=== PATIENT | male | born 1950 | race Caucasian/White ===

== ENCOUNTER 2020-10-28 12:26 | Emergency (ER) | payer BC, MEDICARE ==
[~2020-10-28] VITALS: Ht 188 cm; Wt 80.7 kg
[~2020-10-28 12:26] MED LIST: BAYER BACK & B1 EACH PO; HYDROCODON-ACE1 EA10 PO; LOVASTATIN20 MG PO; METFORMIN HCL500 MG PO; NAPROXEN500 MG PO; SERTRALINE HCL100 MG PO
[2020-10-28] MEDS ORDERED: ONDANSETRON ODT8 MG PO (16:01)
[2020-10-28] MEDS ORDERED: HYDROCODON-ACE1 EA11 PO (16:01)
== END 2020-10-28 17:40 | disposition home or self-care (01) ==
LOC: ED 12:26
DX: N20.1 Calculus of ureter (principal); E78.5 Hyperlipidemia, unspecified; F17.200 Nicotine dependence, unspecified, uncomplicated; Z79.899 Other long term (current) drug therapy; Z79.84 Long term (current) use of oral hypoglycemic drugs; R73.03 Prediabetes
CPT/HCPCS: 51798; 74177; 80053; 81001; 83690; 85025; 99284-25; A9270; J1885; J2405; J7030; Q9967

== ENCOUNTER 2021-10-13 05:54 | Day surgery (SDC) | payer MEDICARE, BC ==
[~2021-10-13] VITALS: Ht 188 cm; Wt 87.7 kg
[~2021-10-13 05:54] MED LIST changes: +HYDROCODON-ACE1 EA11 PO; +ONDANSETRON ODT8 MG PO
--- NOTE | 2021-10-13 06:38 | NUR ---
BLOOD GLUCOSE 111.
--- NOTE | 2021-10-13 08:59 | NUR ---
10/13/21 0859 Sheets,Roseanna 0849 PT ARRIVED TO PACU ON 6L VIA MASK, RESP EVEN AND UNLABORED. PT ASLEEP AND NONAROUSABLE TO TACTILE STIMULI. VSS. 0857 PT WAKES TO TACTILE STIMULI AND IS REORIENTED TO PACU AND EASILY FALLS BACK TO SLEEP. O2 REMOVED.
--- NOTE | 2021-10-13 13:54 | OR ---
[facility] [address] [place], [place] [address] Signed DATE OF OPERATION: 10/13/2021 SURGEON: David Stone MD PREOPERATIVE DIAGNOSIS: History of polyps. POSTOPERATIVE DIAGNOSES: 1. Polyps x2, right colon and sigmoid (small). 2. Extensive diverticulosis. PROCEDURES: Total colonoscopy to cecum with cold morcellation polypectomy x2, prolonged, complicated, difficult (greater than 1 hour). ANESTHESIA: Intravenous sedation propofol infusion, Quoc Hoff CRNA. INDICATIONS: A 71-year-old white man is a patient of Rima Cobb, has undergone colonoscopy in the past with findings of tubular adenoma and hyperplastic polyp. His last colonoscopy was in 2015. He is symptom free currently. He has no family history of colon cancer that he knows of. He is admitted to undergo colonoscopy. He understands the risks of bleeding, infection, and perforation. FINDINGS: The prep had no solid stool, but a fair amount of turbid thickened stool like fluid, which required a fair amount of irrigation, but excellent visualization was ultimately accomplished. Additionally, the colon was extensively redundant. Complete colonoscopy was undertaken of the cecum without question, however. He had extensive diverticulosis extending from the sigmoid and even scattered more proximally all the way up to the right colon. There were two small polyps, one in the right colon, the other at sigmoid, both excised with cold morcellation technique. There was no sign of worrisome type finding otherwise. DESCRIPTION OF PROCEDURE: The patient was brought to the endoscopy suite and placed in lateral decubitus position given intravenous sedation with propofol infusional technique. Digital rectal examination showed decreased sphincter tone. An Olympus video colonoscope was passed into the rectum and manipulated through the colon. The sigmoid was rather redundant and Electronically Signed By: DAVID STONE MD 10/13/21 1354 PATIENT NAME: AIDEE WILSON OPERATIVE REPORT DATE OF : 46 REPORT #: [id number] PHYSICIAN: DAVID STONE MD PCP: RIMA COBB PAC REPORT IS CONFIDENTIAL AND NOT TO BE RELEASED WITHOUT AUTHORIZATION [facility] [address] [place], [place] [address] Signed the prep was not the greatest. Copious amounts of irrigation were required to complete this procedure. Abdominal wall stabilization allow for passage beyond hepatic flexure. The colon was markedly redundant and with multiple diverticula throughout. The scope was advanced ultimately to the cecum, where the ileocecal valve and appendiceal orifice were found to be normal. The scope was withdrawn from that point. In the mid ascending colon was a small polyp, it may be hyperplastic, it is uncertain. It was excised with cold morcellation technique. The scope was further withdrawn and numerous diverticula were once again seen. In the sigmoid, there was a small polyp, somewhat linear in configuration and more likely adenomatous, this was excised with cold morcellation technique. Further withdrawal showed no other findings. Retroflexed view was normal. Scope was removed. The patient was taken to the recovery room in good condition. CONCLUDING DIAGNOSIS: Polyps x2 and extensive diverticulosis. PLAN: Recommend repeat colonoscopy in seven years or sooner if clinically indicated. This plan will be altered depending on histologic findings, however. David Stone MD JM/MODL /[id number] cc: Rima Cobb Copies: ~ Electronically Signed By: DAVID STONE MD 10/13/21 1354 PATIENT NAME: AIDEE WILSON OPERATIVE REPORT DATE OF : 46 REPORT #: [id number] PHYSICIAN: DAVID STONE MD PCP: RIMA COBB PAC REPORT IS CONFIDENTIAL AND NOT TO BE RELEASED WITHOUT AUTHORIZATION
--- NOTE | 2021-10-17 15:04 | PATH ---
[facility] [address] [place], [place] [address] Signed SPECIMEN(S): A ASCENDING/RIGHT COLON POLYP SPECIMEN(S): B SIGMOID POLYP SPECIMEN SOURCE: A. ASCENDING/RIGHT COLON POLYP B. SIGMOID POLYP CLINICAL HISTORY: History of colon polyps and diverticulosis. Diverticulosis, polyps x2. FINAL PATHOLOGIC DIAGNOSIS: A. Colon, ascending/right, polyp, polypectomy: - Fragments of colonic mucosa with no histopathologic abnormality. - Negative for dysplasia or malignancy. B. Colon, sigmoid, polyp, polypectomy: - Fragments of colonic mucosa with melanosis coli and focal dilated submucosal vessels, suggestive of angiodysplasia. - Negative for dysplasia or malignancy. COMMENT: Multiple additional deeper levels were examined. NAL:cml:C2NR MICROSCOPIC EXAMINATION: Histologic sections of all submitted blocks are examined by light microscopy. These findings, together with the gross examination, support the pathologic diagnosis. GROSS DESCRIPTION: Two specimens are received in two containers, labeled "JL." A. The specimen, labeled "JL, one," and designated on the requisition "ascending/right polypectomy," is received in formalin and consists of 8 headley soft tissue fragment(s) that measure 0.1-0.3 cm in greatest dimension. The specimen is entirely submitted in cassette (A1). B. The specimen, labeled "JL, 2," and designated on the requisition "sigmoid polypectomy," is received in formalin and consists of multiple headley soft tissue fragment(s) that measure less than 0.1 up to 0.4 cm in greatest dimension. The specimen is entirely submitted in cassette (B1). AI (under the direct supervision of a pathologist) The Gross Description was prepared using a voice recognition system. The report PATIENT NAME: AIDEE WILSON PATHOLOGY DATE OF : 46 REPORT #: [id number] PHYSICIAN: MALINDA PATHOLOGY PCP: RIMA COBB PAC REPORT IS CONFIDENTIAL AND NOT TO BE RELEASED WITHOUT AUTHORIZATION [facility] [address] [place] [address] Signed was reviewed for accuracy; however, sound-alike word errors, addition and/or deletions may occur. If there is any question about this report, please contact Client Services. PERFORMING LABORATORY: The technical component was performed by [facility], [address] [place] [address] (CLIA# [id number]). Professional interpretation was performed by [facility], [address] [address] (CLIA# [id number]). Diagnostician: Remedios Purcell MD Pathologist Electronically Signed 10/17/2021 Copies: ~ PATIENT NAME: AIDEE WILSON PATHOLOGY DATE OF : 46 REPORT #: [id number] PHYSICIAN: MALINDA PATHOLOGY PCP: RIMA COBB PAC REPORT IS CONFIDENTIAL AND NOT TO BE RELEASED WITHOUT AUTHORIZATION
== END 2021-10-13 09:30 | disposition home or self-care (01) ==
LOC: OPS 05:54 → DS 06:22 → OPS 07:00 → DS 07:00 → OPS 09:30
PROVIDERS: ATTEND Surgery
PROC: 0DBN8ZX Excision of Sigmoid Colon, Via Natural or Artificial Opening Endoscopic, Diagnostic (ICD-10-PCS; 2021-10-13)
PROC: 0DBK8ZX Excision of Ascending Colon, Via Natural or Artificial Opening Endoscopic, Diagnostic (ICD-10-PCS; principal; 2021-10-13 07:00)
DX: Z12.11 Encounter for screening for malignant neoplasm of colon (principal); K63.5 Polyp of colon; K57.30 Diverticulosis of large intestine without perforation or abscess without bleeding; K63.89 Other specified diseases of intestine; F32.A Depression, unspecified; R73.03 Prediabetes; Z87.891 Personal history of nicotine dependence
CPT/HCPCS: 00811; 88305; J2001; J2704

== ENCOUNTER 2025-03-15 23:24 | Emergency (ER) | payer MEDICARE, BC ==
[~2025-03-15] VITALS: Ht 185.4 cm; Wt 89.8 kg
[2025-03-15] MEDS ORDERED: MORPHINE SULFATE 4 MG/ML VIAL IV ONE (23:45)
[2025-03-15] MEDS ORDERED: LACTATED RINGER'S 1,000 ML IV ONE (23:45)
[2025-03-15 23:48] LABS: BASOPHILS 0.1 % (0.2-1.2); EOSINOPHILS 0.9 % (0.8-7.0); LYMPHOCYTES 8.8 % (21.8-53.1); MCH 30.9 PG (25.7-32.2); MCHC 33.1 g/dL (32.3-36.5); MCV 93.4 fL (79.0-92.2); MONOCYTES 6.1 % (5.3-12.2); NEUTROPHILS 83.9 % (34.0-67.9); RBC 4.85 M/uL (4.63-6.08)
[2025-03-16 00:05] LABS: ALT (SGPT) 17 U/L (14-59); AST (SGOT) 23 U/L (15-37); GLOMERULAR FILTRATION RATE,EST 89 mL/min (>60); PROTEIN, TOTAL 7.0 g/dL (6.4-8.2); UREA NITROGEN 18 mg/dL (7-18)
[2025-03-16 00:11] LABS: ALCOHOL, MEDICAL <3 ng/dL (<3)
[2025-03-16 00:28] LABS: ABO O; ANTIBODY SCREEN NEGATIVE; RH POSITIVE
[2025-03-16 01:39] LABS: AMPHETAMINES, URINE NEGATIVE (NEGATIVE); BARBITURATES, URINE NEGATIVE (NEGATIVE); BENZODIAZEPINE, URINE NEGATIVE (NEGATIVE); CANNABINOID, URINE NEGATIVE (NEGATIVE); COCAINE, URINE NEGATIVE (NEGATIVE); ECSTASY, URINE NEGATIVE (NEGATIVE); FENTANYL, URINE NEGATIVE (NEGATIVE); METHADONE, URINE NEGATIVE (NEGATIVE); OPIATES, URINE NEGATIVE (NEGATIVE); OXYCODONE, URINE NEGATIVE (NEGATIVE); PHENCYCLIDINE, URINE NEGATIVE (NEGATIVE)
[2025-03-16 01:46] VITALS: BP 129/81
== END 2025-03-16 01:46 | disposition home or self-care (01) ==
LOC: ED 23:24
PROVIDERS: Family Medicine
DX: S00.83XA Contusion of other part of head, initial encounter (principal); E78.5 Hyperlipidemia, unspecified; R73.03 Prediabetes; F17.200 Nicotine dependence, unspecified, uncomplicated; Z79.84 Long term (current) use of oral hypoglycemic drugs; Z79.899 Other long term (current) drug therapy; W19.XXXA Unspecified fall, initial encounter; Y92.009 Unspecified place in unspecified non-institutional (private) residence as the place of occurrence of the external cause; I48.91 Unspecified atrial fibrillation
CPT/HCPCS: 36415; 70450; 70486; 72125; 80053; 80307; 85025; 86850; 86900; 86901; 93242; 93244; 99283-25; G0480; J7121

== ENCOUNTER 2025-03-20 09:34 | Emergency (ER) | payer MEDICARE, BC ==
[~2025-03-20] VITALS: Ht 185.4 cm; Wt 91.0 kg
--- OUTSIDE RECORDS SUMMARY | 2025-03-20 09:41 | XMS ---
PreManage Notification: AIDEE WILSON Security Technology Specialist Events No recent Security Events currently on file CRITERIA MET - [facility] - 2 Visits in 30 Days CARE PROVIDERS There are no care providers on record at this time. Dmitriy has no Care Guidelines for this patient. Tevin VISIT COUNT (12 MO.) [address] [facility] TOTAL 2 NOTE: Visits indicate total known visits. ED/C VISIT TRACKING (12 MO.) 03/20/2025 09:34 [facility] [place] TYPE: Emergency COMPLAINT: - BLURRY VISON 03/15/2025 23:[address] [facility] [facility] [place] TYPE: Emergency COMPLAINT: - FALL DIAGNOSES: - Contusion of other part of head, initial encounter - Hyperlipidemia, unspecified - custodial (current) use of oral hypoglycemic drugs - Nicotine dependence, unspecified, uncomplicated - Other jail (current) drug therapy - Prediabetes - Unspecified fall, initial encounter - Unspecified injury of face, initial encounter - Unspecified place in unspecified non-institutional (private) residence as the place of occurrence of the external cause INPATIENT VISIT TRACKING (12 MO.) No inpatient visits to display in this time frame [email or web address]
[2025-03-20] MEDS ORDERED: ELIQUIS5 MG PO (10:04)
[2025-03-20 11:06] VITALS: BP 111/77
== END 2025-03-20 11:06 | disposition home or self-care (01) ==
LOC: ED 09:34
DX: S06.0XAA Concussion with loss of consciousness status unknown, initial encounter (principal); S00.03XA Contusion of scalp, initial encounter; E78.5 Hyperlipidemia, unspecified; R73.03 Prediabetes; F17.200 Nicotine dependence, unspecified, uncomplicated; Z79.01 Long term (current) use of anticoagulants; Z79.84 Long term (current) use of oral hypoglycemic drugs; Z79.899 Other long term (current) drug therapy; W19.XXXA Unspecified fall, initial encounter
CPT/HCPCS: 70450; 99284-25